=== PATIENT | male | born 1950 | race Caucasian/White ===

== ENCOUNTER 2017-11-24 15:05 | Outpatient (CLI) | payer MEDICARE, MEDICAID ==
[2017-11-24 15:52] LABS: INR-International Normal Ratio 1.2; Prothrombin Time 15.4 SEC (12.0-14.7)
== END 2017-11-24 15:06 | disposition home or self-care (01) ==
LOC: NAV LAB 15:05
PROVIDERS: ATTEND Family Medicine
DX: Z48.812 Encounter for surgical aftercare following surgery on the circulatory system (principal); Z95.2 Presence of prosthetic heart valve
CPT/HCPCS: 85610

== ENCOUNTER 2018-03-23 08:54 | Emergency (ER) | payer MEDICARE, OTHER ==
[2018-03-23 10:21] LABS: PTT 40.7 SEC (22.9-36.1); Prothrombin Time 22.5 SEC (12.0-14.7)
--- NOTE | 2018-03-23 10:23 | CT ---
CT BRAIN PERFORMED WITHOUT CONTRAST ENHANCEMENT: History: Woke with loss of medial visualize field of right eye. FINDINGS: There is fairly pronounced generalized ventricular and sulcal prominence. There is decreased attenuat ion of the periventricular white matter consistent with chronic white matter change. No signs of intr acerebral hemorrhage or extraaxial fluid collections. Mastoid air cells and visualized sinuses are cl ear. IMPRESSION: No acute intracranial abnormalities. POS: [facility]
[2018-03-23 10:26] LABS: #Basophils 0.2 thou/uL (0.0-0.2); #Eosinphils 0.1 thou/uL (0.0-0.7); #Lymphocytes 0.8 thou/uL (1.20-3.40); #Monocytes 0.7 thou/uL (0.11-0.59); #Neutrophils 4.2 thou/uL (1.40-6.50); %Basophils 3.6 % (0.0-1.0); %Eosinophils 3.8 % (0.0-10.0); %Lymphocytes 13.4 % (21.0-51.0); %Monocytes 11.2 % (0.0-10.0); Hemoglobin 11.5 g/dL (14.0-18.0); Mean Corpuscular HGB CONC 30.4 g/dL (32.0-36.0); Mean Corpuscular Hemoglobin 21.3 pg (27.0-31.0); Mean Corpuscular Volume 70.2 fL (78.0-98.0); Mean Platelet Volume 6.6 fL (7.4-10.4); Platelet Count 299 thou/uL (130-400); Red Blood Cell (RBC) Count 5.37 mill/uL (4.70-6.10); White Blood Cell (WBC) Count 6.1 thou/uL (4.8-10.8)
[2018-03-23 10:32] LABS: CKMB 0.3 ng/mL (0-6.6); Troponin I Less than 0.010 ng/mL (< 0.028)
[2018-03-23 10:35] LABS: ALT (SGPT) 11 U/L (8-55); AST (SGOT) 16 U/L (5-34); Albumin 4.2 g/dL (3.4-4.8); Alkaline Phosphatase 113 U/L (40-150); Anion Gap 12 mmol/L (10-20); BUN (Urea Nitrogen) 15 mg/dL (8.4-25.7); Bilirubin, Total 0.6 mg/dL (0.2-1.2); CK (CPK) 47 U/L (30-200); Calc. Creatinine Clearance 0 mL/min (70-130); Calcium 9.3 mg/dL (7.8-10.44); Carbon Dioxide 26 mmol/L (23-31); Chloride 104 mmol/L (98-107); Estimated GFR-MDRD 77; Glucose 100 mg/dL (80-115); Potassium 4.2 mmol/L (3.5-5.1); Protein, Total 8.2 g/dL (5.8-8.1); Sodium 138 mmol/L (136-145)
== END 2018-03-23 11:13 | disposition home or self-care (01) ==
LOC: NAV ERS 08:54
DX: H54.61 Unqualified visual loss, right eye, normal vision left eye (principal); I11.0 Hypertensive heart disease with heart failure; I50.9 Heart failure, unspecified; K21.9 Gastro-esophageal reflux disease without esophagitis; F32.9 Major depressive disorder, single episode, unspecified; I48.91 Unspecified atrial fibrillation; Z79.899 Other long term (current) drug therapy
CPT/HCPCS: 70450; 80053; 82553; 84484; 85025; 85610; 85730; 93005